=== PATIENT | male | born 1955 | race Caucasian/White ===

== ENCOUNTER → 2017-01-20 | Outpatient (REF) ==
[2015-03-22 21:21] VITALS: BP 155/92
[~2017-01-20] MED LIST: AMLODIPINE5 MG PO; ENALAPRIL5 MG PO; LEVOTHROID0.075 MG PO
== END ==
LOC: LAB 16:47
DX: A69.20 Lyme disease, unspecified (principal)

== ENCOUNTER → 2017-02-15 | Outpatient (REF) ==
[2015-03-22 21:21] VITALS: BP 155/92
== END ==
LOC: LAB 16:38
DX: E29.1 Testicular hypofunction (principal); E03.9 Hypothyroidism, unspecified; I10 Essential (primary) hypertension

== ENCOUNTER → 2017-03-10 | Outpatient (CLI) | payer BC ==
[2015-03-22 21:21] VITALS: BP 155/92
== END ==
LOC: CARDREHAB 14:14
DX: R53.83 Other fatigue (principal); F51.19 Other hypersomnia not due to a substance or known physiological condition
CPT/HCPCS: G0399

== ENCOUNTER → 2017-11-09 | Outpatient (CLI) | payer BC ==
[2015-03-22 21:21] VITALS: BP 155/92
== END ==
LOC: RAD 15:54
DX: I65.23 Occlusion and stenosis of bilateral carotid arteries (principal)